=== PATIENT | male | born 1985 | race American Indian/Alaskan Native ===

== ENCOUNTER 2020-01-10 13:44 | Emergency (ER) | payer BC ==
[2020-01-10 13:50] VITALS: BP 146/83
--- NOTE | 2020-01-10 14:25 | Emergency Department Report ---
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 Said he hurt his back 2 weeks ago. Followed by PCP. However he reinjured again 2 days ago now pain with walking. There is some tingling and numbness that radiates to bilateral lower extremities. States injury due to lifting twisting bending completing work tasks. - Exam Vital Signs: Vital Signs 01/10/20 13:48 Temperature 98.4 F Pulse Rate 77 Respiratory 20 Rate Blood Pressure 146/83 O2 Sat by Pulse 100 Oximetry MSE screening note: Focused history and physical exam performed. Due to findings the following was ordered: ED Disposition for MSE Condition: Stable
--- NOTE | 2020-01-10 14:26 | Event Note ---
ED Screening Note Date of service: 01/10/20 ED Screening Note: This initial assessment/diagnostic orders/clinical plan/treatment(s) is/are subject to change based on patients health status, clinical progression and re- assessment by fellow clinical providers in the ED. Further treatment and workup at subsequent clinical providers discretion. Patient/guardian urged not to elope from the ED as their condition may be serious if not clinically assessed and managed. Initial orders include: lumbar xray
--- NOTE | 2020-01-10 14:51 | XRay Report ---
LUMBAR SPINE, 3 VIEWS INDICATION / CLINICAL INFORMATION: low back pain. COMPARISON: None available. FINDINGS: Vertebral body heights and disc spaces are fairly well-preserved. Posterior alignment is normal. Ther e is no fracture or significant degenerative change identified. Incidental note is made of moderate amount retained stool throughout the colon suggesting constipatio n. IMPRESSION: 1. No significant osseous abnormality of the lumbar spine. 2. Probable constipation. Signer Name: Samra Thompson MD Signed: 01/10/2020 2:47 PM Workstation Name: [id number]
--- NOTE | 2020-01-10 15:34 | Emergency Department Report ---
ED Back Pain/Injury HPI - General Chief Complaint: Back Pain/Injury Stated Complaint: BACK PAIN Time Seen by Provider: 01/10/20 15:27 Source: patient Limitations: No Limitations - History of Present Illness Initial Comments: There is a 34-year-old male who presents for low back pain states pain is 4/10 exacerbated by bending twisting and reaching. Patient denies fall or trauma. However does recall reaching and twisting injury 2 days ago exacerbating injury from 2 weeks ago. He is followed by chiropractor. States he is not taking narcotic pain medication at this time. There is no numbness, and tingling, or paralysis. No loss or decrease in bowel or bladder function. Patient does endorse intermittent tingling and radiation to her bilateral lower extremities intermittently. He is currently alert oriented x3 amatory with steady gait. MD Complaint: back injury Onset/Timin -: days(s) Similar Symptoms Previously: Yes Place: home Radiation: left leg, right leg Severity: moderate Severity scale (0 -10): 4 Quality: aching Consistency: intermittent Improves With: none Worsens With: movement Context: while lifting, turning/twisting, bending Associated Symptoms: denies: weakness, numbness, difficulty urinating, incontinence, fever/chills, nausea/vomiting - Related Data Previous Rx's Medication Instructions Recorded Last Taken Type Cyclobenzaprine [Flexeril] 10 mg PO TID PRN #30 tablet 01/10/20 Unknown Rx Naproxen [Naprosyn] 500 mg PO BID #30 tablet 01/10/20 Unknown Rx polyethylene glycoL 3350 [Miralax 17 gm PO BID PRN #14 packet 01/10/20 Unknown Rx 3350] Allergies Allergy/AdvReac Type Severity Reaction Status Date / Time No Known Allergies Allergy Unverified 01/10/20 13:46 ED Review of Systems ROS: Stated complaint: BACK PAIN Other details as noted in HPI Constitutional: denies: chills, fever Eyes: as per HPI ENT: denies: ear pain, throat pain Respiratory: denies: cough, shortness of breath, wheezing Cardiovascular: denies: chest pain, palpitations Endocrine: no symptoms reported Gastrointestinal: denies: abdominal pain, nausea, vomiting, diarrhea Genitourinary: denies: urgency, dysuria Musculoskeletal: back pain, myalgia Skin: denies: rash, lesions Neurological: denies: headache, weakness, paresthesias Psychiatric: denies: anxiety, depression Hematological/Lymphatic: denies: easy bleeding, easy bruising ED Past Medical Hx - Past Medical History Previous Medical History?: Yes Additional medical history: back pain/injury - Surgical History Past Surgical History?: Yes Additional Surgical History: Right arm surgery with hardware - Social History Smoking Status: Never Smoker Substance Use Type: Alcohol - Medications Home Medications: Home Medications Medication Instructions Recorded Confirmed Last Taken Type Cyclobenzaprine [Flexeril] 10 mg PO TID PRN #30 tablet 01/10/20 Unknown Rx Naproxen [Naprosyn] 500 mg PO BID #30 tablet 01/10/20 Unknown Rx polyethylene glycoL 3350 [Miralax 17 gm PO BID PRN #14 packet 01/10/20 Unknown Rx 3350] ED Physical Exam - General Limitations: No Limitations General appearance: alert, in no apparent distress - Head Head exam: Present: atraumatic, normocephalic - Eye Eye exam: Present: normal appearance, PERRL, EOMI Pupils: Present: normal accommodation - ENT ENT exam: Present: mucous membranes moist - Neck Neck exam: Present: normal inspection, full ROM. Absent: tenderness - Respiratory Respiratory exam: Present: normal lung sounds bilaterally. Absent: wheezes, stridor - Cardiovascular Cardiovascular Exam: Present: regular rate, normal heart sounds - GI/Abdominal GI/Abdominal exam: Present: soft, normal bowel sounds. Absent: distended, tenderness, guarding, rebound, rigid, bruit, hernia - Rectal Rectal exam: Present: deferred - Extremities Exam Extremities exam: Present: normal inspection, full ROM. Absent: tenderness - Back Exam Back exam: Present: full ROM, muscle spasm, paraspinal tenderness. Absent: tenderness, CVA tenderness (R), CVA tenderness (L), vertebral tenderness, rash noted - Expanded Back Exam Expanded Back exam: Absent: saddle anesthesia Back exam: Negative Straight Leg Raising: Left, Right - Neurological Exam Neurological exam: Present: alert, oriented X3, CN II-XII intact, normal gait, reflexes normal. Absent: motor sensory deficit - Psychiatric Psychiatric exam: Present: normal affect, normal mood - Skin Skin exam: Present: warm, dry, intact, normal color. Absent: rash ED Course Vital Signs 01/10/20 13:48 Temperature 98.4 F Pulse Rate 77 Respiratory 20 Rate Blood Pressure 146/83 O2 Sat by Pulse 100 Oximetry ED Medical Decision Making - Radiology Data Radiology results: report reviewed, image reviewed no fracture or soft tissue abnormality , probable constipation - Medical Decision Making X-ray normal no fracture or soft tissue abnormality. Noted moderate stool load ing likely constipation. Pain is improved with NSAIDs. Plan DC to home with prescriptions. Hydrate and as directed. Follow-up with primary care doctor in 2 to 3 days. Patient verbalizes agreement and understanding with discharge plan. Patient DC'd home in stable condition at this time. Critical care attestation.: If time is entered above; I have spent that time in minutes in the direct care of this critically ill patient, excluding procedure time. ED Disposition Clinical Impression: Lumbar strain Qualifiers: Encounter type: initial encounter Qualified Code(s): S39.012A - Strain of muscle, fascia and tendon of lower back, initial encounter Constipation Qualifiers: Constipation type: unspecified constipation type Qualified Code(s): K59.00 - Constipation, unspecified Disposition: DC-01 TO HOME OR SELFCARE Is pt being admited?: No Does the pt Need Aspirin: No Condition: Stable Instructions: Muscle Strain (ED), Constipation (ED) Prescriptions: Cyclobenzaprine [Flexeril] 10 mg PO TID PRN #30 tablet PRN Reason: Muscle Spasm polyethylene glycoL 3350 [Miralax 3350] 17 gm PO BID PRN #14 packet PRN Reason: Constipation Naproxen [Naprosyn] 500 mg PO BID #30 tablet Referrals: DC MOREL MD [Staff Physician] - 3-5 Days Forms: Work/School Release Form(ED) Time of Disposition: 15:41
[2020-01-10] MEDS ORDERED: KETOROLAC 30 MG/1 ML INJ IM ONE (15:36)
== END 2020-01-10 18:08 | disposition home or self-care (01) ==
LOC: ED 13:44
DX: S39.012A Strain of muscle, fascia and tendon of lower back, initial encounter (principal); K59.00 Constipation, unspecified; Z98.890 Other specified postprocedural states; Z79.899 Other long term (current) drug therapy; X50.1XXA Overexertion from prolonged static or awkward postures, initial encounter; Y93.89 Activity, other specified; Y92.89 Other specified places as the place of occurrence of the external cause; Y99.8 Other external cause status
CPT/HCPCS: 72100; 96372; 99283; J1885